=== PATIENT | male | born 1975 ===

== ENCOUNTER 2018-02-15 17:39 | Emergency (ER) | payer OTHER ==
[2018-02-15 17:47] VITALS: BP 113/67
[2018-02-15] MEDS ORDERED: Ketorolac INJ* 30 MG/ML 1 ML VIAL IV PUSH ONE (19:06)
--- NOTE | 2018-02-15 19:15 | RAD ---
HISTORY: Right shoulder possible dislocation COMPARISONS: None VIEWS: 4, Frontal internal rotation, external rotation, outlet, and axillary views of the right shoulder FINDINGS: BONE DENSITY: Normal. BONES: There is no displaced fracture. 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 ALIGNMENT: There is no dislocation. SOFT TISSUES: Unremarkable. OTHER FINDINGS: None. IMPRESSION: NO ACUTE OSSEOUS INJURY. IF SYMPTOMS PERSIST, RECOMMEND REPEAT IMAGING.
[2018-02-15] MEDS ORDERED: Ketorolac INJ* 30 MG/ML 1 ML VIAL IM ONE (19:21)
--- NOTE | 2018-02-15 20:00 | ED ---
Upper Extremity Pain - HPI Summary HPI Summary: 42-year-old male presents with right shoulder pain today. He states he was doing pushups and felt pain in his right shoulder. He admits to some numbness and tingling. He never had this pain before. No previous history of dislocations. He has history of shoulder pain. He is right-handed. He is in the alf system. He was given ibuprofen for pain with minimal relief. he is in severe pain. alf systems states that has deformity to area and is concerned as has dislocation. - History of Current Complaint Chief Complaint: EDExtremityUpper Stated Complaint: RT SHOULDER INJURY Time Seen by Provider: 02/15/18 18:36 - Allergies/Home Medications Allergies/Adverse Reactions: Allergies Allergy/AdvReac Type Severity Reaction Status Date / Time No Known Allergies Allergy Verified 02/15/18 17:48 Home Medications: Home Medications NK [No Home Medications Reported] 02/15/18 [History Confirmed 02/15/18] PMH/Surg Hx/FS Hx/Imm Hx Endocrine/Hematology History: Denies: Hx Anticoagulant Therapy Respiratory History: Denies: Hx Asthma Infectious Disease History: No Infectious Disease History: Denies: Traveled Outside the [place] in Last 30 Days - Family History Known Family History: Positive: Hypertension - Social History Alcohol Use: None Alcohol Amount: used to befor incarceration Substance Use Type: Reports: Cocaine, Marijuana Substance Use Comment - Amount & Last Used: used to smoke and use cocaine prior to incarceration Smoking Status (MU): Current Every Day Smoker Review of Systems Negative: Fever Negative: Chest Pain Negative: Shortness Of Breath Positive: Myalgia - right shoulder pain All Other Systems Reviewed And Are Negative: Yes Physical Exam Triage Information Reviewed: Yes Vital Signs On Initial Exam: Initial Vitals Temp Pulse Resp BP Pulse Ox 98.7 F 80 17 113/67 99 02/15/18 17:43 02/15/18 17:43 02/15/18 17:43 02/15/18 17:43 02/15/18 17:43 Vital Signs Reviewed: Yes Appearance: Positive: Well-Appearing Skin: Positive: Warm, Dry Head/Face: Positive: Normal Head/Face Inspection Eyes: Positive: Normal, Conjunctiva Clear Respiratory/Lung Sounds: Positive: Clear to Auscultation, Breath Sounds Present Cardiovascular: Positive: Normal, RRR Musculoskeletal: Positive: Limited @ - right shoulder, Other - tenderness over right shoulder greatest in biceps tendon groove, pos yeargsons, neg drop arm, able to reach arm behind back, good pulses, capillary refill<2 secs, sensation grossly intact Neurological: Positive: Normal Psychiatric: Positive: Normal Diagnostics - Vital Signs Vital Signs Temp Pulse Resp BP Pulse Ox 02/15/18 17:43 98.7 F 80 17 113/67 99 - Laboratory Lab Statement: Any lab studies that have been ordered have been reviewed, and results considered in the medical decision making process. - Radiology shoulder Xray Interpretation: No Acute Changes Radiology Interpretation Completed By: Radiologist Course/Dx - Course Course Of Treatment: 42-year-old male presents with right shoulder pain today. He states he was doing pushups and felt pain in his right shoulder. He admits to some numbness and tingling. He never had this pain before. No previous history of dislocations. He has history of shoulder pain. He is right-handed. He is in the alf system. He was given ibuprofen for pain with minimal relief. he is in severe pain. On exam has tenderness over the biceps tendon insertion on the right shoulder. No deformity to right shoulder. Neurovascularly intact. Positive yearsgons sign. X-ray shoulder normal. We' ll treat with sling and have follow-up with ortho. Patient understands agrees with plan. - Diagnoses Differential Diagnosis/HQI/PQRI: Positive: Fracture (Closed), Strain, Sprain Provider Diagnoses: Right shoulder pain Discharge - Sign-Out/Discharge Documenting (check all that apply): Discharge/Admit/Transfer - Discharge Plan Condition: Good Disposition: HOME Patient Education Materials: Shoulder Pain (ED) Referrals: Yordan PLEITEZ,Kane Butt [Primary Care Provider] - Maritza Brooks MD [Medical Doctor] - Additional Instructions: Take Tylenol and ibuprofen every 6 hours as needed for pain Ice/heat Can rest for one day and then need to do range of motion activities for shoulder Follow up with ortho Return to ED if develop any new or worsening symptoms - Billing Disposition and Condition Condition: GOOD Disposition: HOME
--- NOTE | 2018-02-15 20:38 | RAD ---
HISTORY: Right arm pain COMPARISONS: None VIEWS: 2, frontal and frontal oblique views of the right clavicle FINDINGS: BONE DENSITY: Normal. BONES: There is no displaced fracture. JOINTS: Again noted is mild osteoarthritis of the right AC joint. ALIGNMENT: There is no dislocation. SOFT TISSUES: Unremarkable. OTHER FINDINGS: None. IMPRESSION: NO ACUTE OSSEOUS INJURY. IF SYMPTOMS PERSIST, RECOMMEND REPEAT IMAGING.
--- NOTE | 2018-02-15 20:39 | RAD ---
HISTORY: Right arm pain COMPARISONS: None VIEWS: 2, Frontal internal rotation and external rotation views of the right humerus FINDINGS: BONE DENSITY: Normal. BONES: There is no displaced fracture. JOINTS: There is no arthropathy. ALIGNMENT: There is no dislocation. SOFT TISSUES: Unremarkable. OTHER FINDINGS: None. IMPRESSION: NO ACUTE OSSEOUS INJURY. IF SYMPTOMS PERSIST, RECOMMEND REPEAT IMAGING.
== END 2018-02-15 22:05 | disposition home or self-care (01) ==
LOC: ED 17:39
DX: M25.511 Pain in right shoulder (principal); F17.210 Nicotine dependence, cigarettes, uncomplicated
CPT/HCPCS: 96372; 96374; 99282; J1885